=== PATIENT | male | born 1990 | race Two or more races ===

== ENCOUNTER 2017-09-19 13:58 | Day surgery (SDC) | payer OTHER ==
[2017-09-19] MEDS ORDERED: DIPHENHYDRAMINE 50 MG INJ (16:21)
== END 2017-09-19 18:23 | disposition home or self-care (01) ==
LOC: GIL 13:58
DX: D12.5 Benign neoplasm of sigmoid colon (principal); K64.0 First degree hemorrhoids
CPT/HCPCS: 45380; 88305